=== PATIENT | female | born 1955 | race Caucasian/White ===

== ENCOUNTER 2017-02-16 11:22 | Emergency (ER) | payer OTHER | END 2017-02-16 17:18 | disposition home or self-care (01) | LOC: D.ER 11:22 | DX: S83.207A Unspecified tear of unspecified meniscus, current injury, left knee, initial encounter (principal); X58.XXXA Exposure to other specified factors, initial encounter; Y93.89 Activity, other specified; Y92.019 Unspecified place in single-family (private) house as the place of occurrence of the external cause; E10.9 Type 1 diabetes mellitus without complications; Z79.4 Long term (current) use of insulin ==

== ENCOUNTER 2017-02-20 10:25 | Day surgery (SDC) | payer OTHER ==
[~2017-02-20] VITALS: Ht 165.1 cm; Wt 95.3 kg
[~2017-02-20 10:25] MED LIST: ACETAMINOPHEN500 M1 PO; ADVIL200 MG PO; ATIVAN1 MG PO; BYSTOLIC5 MG PO; CIPRO500 MG PO; FLOMAX0.4 MG PO; GLYBURIDE5 M1 PO; LANTUS SOL100 UNIT/1 SC; VALTREX500 MG PO; ZOLOFT100 MG PO
[2017-02-20] MEDS ORDERED: CRANBERRY 400 M1 TA1 PO (11:39)
[2017-02-20] MEDS ORDERED: BAYER CHEWABLE81 MG PO (11:39)
[2017-02-20] MEDS ORDERED: OXYCONTIN10 MG PO (11:40)
[2017-02-20 11:42] VITALS: BP 119/60; Ht 165.1 cm; Wt 95.3 kg
[2017-02-20] MEDS ORDERED: PERCOCET 10/3251 TA1 PO (13:39)
== END 2017-02-20 16:00 | disposition home or self-care (01) ==
LOC: D.OPS 10:25 → D.PAN 12:15 → D.OPS 16:00
DX: S83.242A Other tear of medial meniscus, current injury, left knee, initial encounter (principal); R94.31 Abnormal electrocardiogram [ECG] [EKG]; Z01.812 Encounter for preprocedural laboratory examination; E11.9 Type 2 diabetes mellitus without complications

== ENCOUNTER → 2017-10-10 22:00 | Outpatient (CLI) | payer OTHER ==
[2017-02-20 11:42] VITALS: BMI 35.0
[~2017-10-10 22:00] MED LIST changes: +BAYER CHEWABLE81 MG PO; +CRANBERRY 400 M1 TA1 PO; +OXYCONTIN10 MG PO; +PERCOCET 10/3251 TA1 PO
== END | disposition home or self-care (01) ==
LOC: D.MAMMO 15:30
DX: Z12.31 Encounter for screening mammogram for malignant neoplasm of breast (principal)

== ENCOUNTER → 2017-11-05 12:05 | Outpatient (CLI) | payer OTHER ==
[2017-02-20 11:42] VITALS: BMI 35.0
== END | disposition home or self-care (01) ==
LOC: D.MAMMO 10:30
DX: R92.8 Other abnormal and inconclusive findings on diagnostic imaging of breast (principal)

== ENCOUNTER → 2018-06-24 13:55 | Outpatient (CLI) | payer OTHER ==
[2017-02-20 11:42] VITALS: BMI 35.0
== END | disposition home or self-care (01) ==
LOC: D.MRI 13:55
DX: S83.241A Other tear of medial meniscus, current injury, right knee, initial encounter (principal); X58.XXXA Exposure to other specified factors, initial encounter

== ENCOUNTER 2018-07-09 06:20 | Day surgery (SDC) | payer OTHER ==
[~2018-07-09] VITALS: Ht 165.1 cm; Wt 99.8 kg
[~2018-07-09 06:20] MED LIST changes: +RESTORIL15 MG; +TOZAL SOFTGEL1 EACH
[2018-07-09 07:54] VITALS: BP 118/66; Ht 165.1 cm; Wt 99.8 kg
[2018-07-09] MEDS ORDERED: HYDROCODON-ACE1 EA10 PO (11:42)
--- NOTE | 2018-07-20 09:18 | OP ---
PATIENT NAME: KASSANDRA HERNANDEZ MEDICAL RECORD: [id number] :55 LOCATION:D.OPS ADMISSION DATE: SURGEON: KYLE ALEMAN MD DATE OF OPERATION: 07/09/2018 PREOPERATIVE DIAGNOSIS: Medial meniscus tear of the right knee. POSTOPERATIVE DIAGNOSIS: Medial meniscus tear of the right knee. PROCEDURE: Arthroscopic partial medial meniscectomy of the right knee. SURGEON: Kyle Aleman MD ANESTHESIA: General. INTRAOPERATIVE COMPLICATIONS: None. 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 There was generalized grade II and III arthritis of the medial compartment; however, at no point on the medial femoral condyle did I see eburnated bone. OPERATIVE SUMMARY IN DETAIL: After obtaining the appropriate preoperative orthopedic surgery consent as well as anesthetic consultation, evaluation, and clearance, the patient was brought to the operating room and placed on the operating table in supine position. After adequate general laryngeal mask airway was administered, tourniquet was placed about the proximal aspect of the right lower extremity. Right lower extremity was then prepped and draped in routine sterile fashion. The leg was elevated and exsanguinated, tourniquet inflated to 350 mmHg. Routine inferolateral portal was established followed by superomedial portal and inferomedial portal. Diagnostic arthroscopy revealed the above findings. Attention was first turned to the medial meniscus. Combination of meniscotomes as well as a 0.035 full radius resector were utilized to debride the meniscus back to stable meniscal elements. The area of eburnated bone was noted as was the area of the medial femoral condyle. Minimal chondromalacia was seen in the trochlea. None was seen on the lateral compartment. Having completed this, the knee was insufflated with 30 cc of 0.25% Marcaine with epinephrine and 80 mg of Depo-Medrol. Arthroscopy portals were closed in routine interrupted fashion using 4-0 Prolene. Sterile dressings were applied. The patient was awakened and taken to the recovery room in stable condition. All final needle and sponge counts were correct. TRANSINT:[id number] Voice Confirmation ID: [id number] DOCUMENT ID: [id number] KYLE ALEMAN MD at 0918 CC: [id number] DICTATION DATE: 07/17/18 0934 PALLIATIVE SENIOR NP: 07/17/18 1048 [facility] 07/09/18 [place] [id number] [place] [id number]
== END 2018-07-09 13:45 | disposition home or self-care (01) ==
LOC: D.OPS 06:20 → D.PAN 08:00 → D.OPS 08:30 → D.PAN 08:30 → D.OPS 08:50
DX: S83.231A Complex tear of medial meniscus, current injury, right knee, initial encounter (principal); M94.261 Chondromalacia, right knee; M13.861 Other specified arthritis, right knee; Z01.812 Encounter for preprocedural laboratory examination

== ENCOUNTER → 2018-11-12 09:38 | Outpatient (CLI) | payer OTHER ==
[2018-08-28 12:15] VITALS: BMI 36.6
[~2018-11-12 09:38] MED LIST changes: +HYDROCODON-ACE1 EA10 PO
== END | disposition home or self-care (01) ==
LOC: D.MRI 09:38
PROVIDERS: ATTEND Orthopaedic Surgery
DX: S83.241A Other tear of medial meniscus, current injury, right knee, initial encounter (principal)

== ENCOUNTER → 2018-11-17 16:21 | Outpatient (CLI) | payer OTHER ==
[2018-08-28 12:15] VITALS: BMI 36.6
== END | disposition home or self-care (01) ==
LOC: D.LABREF 16:21
PROVIDERS: ATTEND Orthopaedic Surgery
DX: M17.11 Unilateral primary osteoarthritis, right knee (principal); Z11.8 Encounter for screening for other infectious and parasitic diseases

== ENCOUNTER 2018-11-19 15:00 | Inpatient (IN) | payer OTHER ==
[~2018-11-19] VITALS: Ht 165.1 cm; Wt 95.5 kg
[~2018-11-19 15:00] MED LIST changes: -RESTORIL15 MG; +RESTORIL15 MG PO
[2018-12-29] MEDS ORDERED: MULTI-DAY VITAM1 TAB PO (15:46)
[2018-12-29] MEDS ORDERED: estroven PO (15:47)
[2018-12-30 11:17] LABS: BASOPHILS 0.1 % (0-2); EOSINOPHILS 3.5 % (0-7); HEMATOCRIT 40.8 % (36.0-48.0); HEMOGLOBIN 13.7 g/dL (12-16); IMMATURE GRANULOCYTES 0.3 % (0-5); LYMPHOCYTES 23.6 % (15-50); MCH 27.2 pg (26.0-34.0); MCHC 33.6 g/dL (31.0-37.0); MCV 81.1 fL (80.0-100.0); MEAN PLATELET VOLUME 9.2 fL (7.4-10.4); MONOCYTES 7.6 % (2-11); NEUTROPHILS 64.9 % (40-80); PLATELET COUNT 198 10x3/uL (130-400); RBC 5.03 10x6/uL (4.00-5.40); RDW 16.3 % (11.5-14.5); WBC 7.2 10x3/uL (4.8-10.8)
[2018-12-30 11:20] LABS: ANION GAP 14.6 mmol/L (8-16); CALCIUM 8.7 mg/dL (8.5-10.1); CARBON DIOXIDE 23.6 mmol/L (21.0-32.0); POTASSIUM - SERUM 4.2 mmol/L (3.5-5.1)
[2018-12-30 11:25] LABS: INR 1.08 (0.85-1.17); PROTIME 13.5 SECONDS (11.6-15.0)
[2018-12-30 11:56] LABS: APPEARANCE SL CLDY (CLEAR); BACTERIA MANY /hpf (NONE SEEN); BILIRUBIN NEGATIVE (NEGATIVE); COLOR YELLOW (YELLOW); EPITHELIAL CELLS 0-5 /hpf (0-5); GLUCOSE 50 mg/dL (NEGATIVE); KETONE NEGATIVE (NEGATIVE); MUCUS <1+ /lpf (NONE SEEN); NITRITE POSITIVE (NEGATIVE); PROTEIN TRACE mg/dL (NEGATIVE); RED CELLS - URINE 0-5 /hpf (0-5); SPECIFIC GRAVITY 1.025 (1.005-1.020); UROBILINOGEN NORMAL (NORMAL); WHITE CELLS - URINE 25-50 /hpf (0-5)
[2019-01-04] VITALS (9 sets, daily range): BP systolic 94–136; BP diastolic 47–68; Ht 165.1 cm; Wt 95.5 kg
[2019-01-04] MEDS ORDERED: ALBUTEROL SULF8.5 GM INH (06:18)
[2019-01-04 06:39] LABS: APPEARANCE CLOUDY (CLEAR); BILIRUBIN NEGATIVE (NEGATIVE); COLOR YELLOW (YELLOW); GLUCOSE NEGATIVE (NEGATIVE); KETONE NEGATIVE (NEGATIVE); NITRITE NEGATIVE (NEGATIVE); PROTEIN NEGATIVE (NEGATIVE); UROBILINOGEN NORMAL (NORMAL)
[2019-01-04 06:40] LABS: BACTERIA FEW /hpf (NONE SEEN); EPITHELIAL CELLS 0-5 /hpf (0-5); WHITE CELLS - URINE 0-5 /hpf (0-5)
[2019-01-04 06:41] LABS: CALCIUM OXALATE CRYSTALS RARE /hpf (NONE SEEN); MUCUS <1+ /lpf (NONE SEEN); TALC POWDER CRYSTALS OCC /hpf (NONE SEEN); URIC ACID CRYSTALS 0-5 /hpf (NONE SEEN)
--- NOTE | 2019-01-04 08:11 | NUR ---
PLASMA BLADE SET TO 6/8 AND BOVIE PAD RIGHT FLANK LOT [id number] DATE 06/17/20 PREPT FROM TOURNIQUT TO TOES CIRCUMFERENTIALEY
--- NOTE | 2019-01-04 09:32 | NUR ---
LMA REMOVED. MASK IN PLACE. PT AWAKE BUT DROWSY. APPLIED ICE PACK TO R.KNEE. PT DENIES ANY CURRENT PAIN. WILL CTM.
--- NOTE | 2019-01-04 10:52 | NUR ---
PATIENT RECIEVED FROM RECOVERY ROOM FOLLOWING RIGHT TOTAL KNEE REPLACEMENT. DRESSING TO RIGHT KNEE SECURED WITH JOSEFINA AND IS DRY AND INTACT. PATIENT REPORTS SOME PAIN TO POSTERIER KNEE, NORCO GIVEN FOR PAIN. PERIPHERAL PULSES INTACT. RESPITATONS NON-LABORED BUT SHALLOW WITH PAIENT PLACED ON 4L NC POST ANESTHESIA. PATIENT EDUCATED ON COUGH AND DEEP BREATHING EXERCISES WITH IS PROVIDED. V/S STABLE. CL IN REACH
--- NOTE | 2019-01-04 12:21 | OP ---
PATIENT NAME: KASSANDRA HERNANDEZ MEDICAL RECORD: [id number] :55 LOCATION:D.MS [id number] ADMISSION DATE:01/04/19 SURGEON: KYLE ALEMAN MD DATE OF OPERATION: 01/04/2019 PREOPERATIVE DIAGNOSIS: Degenerative arthritis, right knee. POSTOPERATIVE DIAGNOSIS: Degenerative arthritis, right knee. PROCEDURE: Right total knee arthroplasty. SURGEON: Kyle Aleman MD AUTOMOBILE ENGINE ASSEMBLER: 1. Thanh Barrera. 2. Kevin. INTRAOPERATIVE COMPLICATIONS: None. SUMMARY OF PATHOLOGIC FINDINGS: The patient was found to have severe degenerative arthritis of the medial compartment [id number] arthritis seen with kissing lesion in the medial tibial plateau. IMPLANTS USED: A cemented Triathlon total knee arthroplasty, size 4 distal femur, 4 tibial baseplate, 9 polyethylene insert, 31 mm patella. OPERATIVE SUMMARY IN DETAIL: After obtaining the appropriate preoperative orthopedic surgery consents as well as anesthetic consultation, evaluation and clearance, the patient was brought to the operating room and placed on the operating table in supine position. After adequate general laryngeal mask airway was administered, tourniquet was placed about the proximal aspect of the right lower extremity. Right lower extremity was prepped and draped in routine sterile fashion. At this point, the appropriate timeout was taken with the appropriate patient indicators, allergies, as well as medications. This was agreed upon by all in the operative suite. The leg was then elevated and exsanguinated, tourniquet was inflated to 350 mmHg. Routine midline incision was taken down for a paramedian arthrotomy. Patella was everted, distal femur exposed. Soft tissue excision was done in the usual fashion. An intramedullary guide hole was created intramedullary guided distal femoral cut. Complete exposure of the proximal tibia was then followed by further soft tissue removal and the intramedullary guided cut was created here likewise. Appropriate measurements were taken. Distal chamfer cuts were made. Trial components corresponding to the finals were put into place. Final distal femoral and proximal tibial preparation were then followed by cutting of the arthritic surface of the patella for a size 31 x 9 symmetric onlay patella. Trials were removed. The knee was then irrigated for removal of all debris. Bone ends were completely dried. Components were cemented into place. All excess cement was removed. After the cement had been removed and allowed to harden, the knee was taken through range of motion and found to be stable in all planes with good patellar tracking. At this point, Dalton Barrera and Kevin both closed the paramedian arthrotomy. Prior to paramedian arthrotomy closure, the knee was filled with a gram of vancomycin, a gram of tobramycin. Paramedian arthrotomy was closed with #2 Ethibond followed by #1 Vicryl, 2-0 Vicryl, subcuticular zip tie was then placed. Sterile dressings were applied. Tourniquet was deflated. The patient was awakened and taken to recovery room in stable condition. All OPERATIVE REPORT [id number] KASSANDRA HERNANDEZ final needle and sponge counts were correct. TRANSINT:[id number] Voice Confirmation ID: [id number] DOCUMENT ID: [id number] LOVE GUERRA, KYLE BRUNER at 1221 CC: [id number] DICTATION DATE: 01/04/19914 SUPERVISOR LEAF SPRING FABRICATION: 01/04/19 0931 ADM IN [facility] [address] [place] [address]
--- NOTE | 2019-01-04 19:40 | NUR ---
LYING IN BED. CPM IN USE. ALERT AND ORIENTED X4. RATES PAIN 1 IN RT KNEE. DRSG NOTED TO RT KNEE WITH JOSEFINA WRAP. NO EDEMA NOTED. NAVI HOSE ON AND SCD IN USE TO LLE. 1/2 NS @ 100 ML/HR INFUSING IN LT FOREARM WITHOUT DIFF. MADISON ALARM ON. AT BEDSIDED. SR ELEVATED X2. CL IN REACH.
--- NOTE | 2019-01-04 21:50 | NUR ---
MEDICATED WITH NORCO FOR C/O PAIN IN RT KNEE. CL IN REACH.
[2019-01-05] VITALS: BP 104/44
--- NOTE | 2019-01-05 02:49 | NUR ---
MEDICATED WITH TORADOL FOR C/O PAIN IN RT KNEE. CL IN REACH.
[2019-01-05 04:00] VITALS: BP 111/61
[2019-01-05 06:49] LABS: HEMATOCRIT 32.2 % (36.0-48.0); HEMOGLOBIN 10.6 g/dL (12-16); MCHC 32.9 g/dL (31.0-37.0); MCV 81.9 fL (80.0-100.0); MEAN PLATELET VOLUME 9.2 fL (7.4-10.4); RBC 3.93 10x6/uL (4.00-5.40); RDW 16.6 % (11.5-14.5)
[2019-01-05 07:55] LABS: CALC OSMOLALITY 278 mosm/kg (275-300); CALCIUM 7.9 mg/dL (8.5-10.1); CARBON DIOXIDE 21.9 mmol/L (21.0-32.0); CHLORIDE - SERUM 107 mmol/L (98-107); CREATININE - SERUM 0.8 mg/dL (0.6-1.3); POTASSIUM - SERUM 4.4 mmol/L (3.5-5.1); SODIUM 139 mmol/L (136-145); UREA NITROGEN 11 mg/dL (7-18); eGFR NON AFRICAN AMERICAN 77 mL/min (90-120)
[2019-01-05 07:58] LABS: GLUCOSE 134 mg/dL (74-106)
[2019-01-05 08:24] VITALS: BP 107/49
--- NOTE | 2019-01-05 10:51 | NUR ---
PT ALERT X 4. BREATH SOUNDS CLEAR BILAT. IV TO LEFT FOREARM, PATENT, DRESSING CDI. PT REPORTING PAIN OF 7/10, SENIOR PRINCIPAL SOFTWARE ENGINEER INITIATED, WILL MONITOR. DRESSING TO RIGHT LEG CDI. NAVI HOSE TO LEFT LEG. PT UP TO CHAIR. BED LOW, CALL LIGHT IN REACH. NO OTHER NEEDS AT THIS TIME.
[2019-01-05 11:54] VITALS: BP 99/65
[2019-01-05 15:45] VITALS: BP 125/62
--- NOTE | 2019-01-05 19:15 | NUR ---
LYING IN BED. DROWSY. FALLING ASLEEP DURING CONVERSATION. AT BEDSIDE. INSTRUCTED PT TO ONLY USE EARTH BORING MACHINE OPERATOR NEEDED. RATES PAIN 6 IN RT KNEE. CPM IN USE. MEDICATED WITH ZOFRAN FOR C/O NAUSEA. SCD AND NAVI TO LLE. 1/2 NS @ 30 ML/HR INFUSING IN LT FOREARM WITHOUT DIFF WITH DILAUDID EARTH BORING MACHINE OPERATOR. ABD DISTENDED AND FIRM. BS HYPOACTIVE. AMB WITH WALKER WITH ASSIST. ENCOURAGED TO USE I.S, COUGH AND DEEP BREATHE. SR ELEVATED X2. CL IN REACH.
--- NOTE | 2019-01-05 19:30 | NUR ---
RT IN ROOM TO CHECK SAO2 AND NOTIFIED STAFF SAO2 OF 66%. PT PLACED ON O2 @ 3L/NC AT THIS TIME. ENCOURAGED TO USE I.S. AND COUGH AND DEEP BREATHE. PT VERBALIZED UNDERSTANDING OF THIS. INSTRUCTED TO USE FRUIT GRADER OPERATOR ONLY IF IN PAIN. AT BEDSIDE. SAO2 UP TO 92%.
[2019-01-05 20:00] VITALS: BP 136/65
--- NOTE | 2019-01-05 20:10 | NUR ---
NOTIFIED DR LONGORIA SHOE POLISHER FOR ELEVATED TEMP. NEW ORDER NOTED FOR TYLENOL AND TO USE I.S INSTRUCTED.
--- NOTE | 2019-01-05 22:00 | NUR ---
MEDICATED WITH TORADOL FOR C/O RT KNEE PAIN. STATES SHE ISNT USING ART THERAPY SPECIALIST MUCH. HELD RESTORIL DUE TO DROWSINESS. CL IN REACH.
[2019-01-06] VITALS: BP 107/40
--- NOTE | 2019-01-06 02:16 | NUR ---
LYING AWAKE IN BED. NO DISTRESS. ALERT. TALKATIVE WITH STAFF. CL IN REACH.
--- NOTE | 2019-01-06 02:58 | NUR ---
ASSISTED UP TO BR TO VOID. AMB WITH WALKER. DOING WELL. NO DISTRESS. CL IN REACH.
[2019-01-06 04:00] VITALS: BP 113/60
[2019-01-06 05:09] LABS: HEMATOCRIT 31.6 % (36.0-48.0); HEMOGLOBIN 10.3 g/dL (12-16); MCH 26.8 pg (26.0-34.0); MCHC 32.6 g/dL (31.0-37.0); MCV 82.3 fL (80.0-100.0); MEAN PLATELET VOLUME 9.4 fL (7.4-10.4); RBC 3.84 10x6/uL (4.00-5.40); RDW 16.9 % (11.5-14.5); WBC 8.4 10x3/uL (4.8-10.8)
[2019-01-06 09:20] VITALS: BP 100/69
[2019-01-06 12:24] VITALS: BP 96/47
[2019-01-06 14:08] LABS: APPEARANCE HAZY (CLEAR); BACTERIA MODERATE /hpf (NONE SEEN); BILIRUBIN NEGATIVE (NEGATIVE); COLOR YELLOW (YELLOW); EPITHELIAL CELLS 0-5 /hpf (0-5); GLUCOSE 50 mg/dL (NEGATIVE); KETONE SMALL mg/dL (NEGATIVE); MUCUS <1+ /lpf (NONE SEEN); NITRITE NEGATIVE (NEGATIVE); PROTEIN NEGATIVE (NEGATIVE); SPECIFIC GRAVITY 1.015 (1.005-1.020); UROBILINOGEN NORMAL (NORMAL); WHITE CELLS - URINE 0-5 /hpf (0-5)
[2019-01-06 14:09] LABS: GRANULAR CAST OCC /lpf (NONE SEEN); HYALINE CAST RARE /lpf (NONE SEEN)
[2019-01-06 18:46] VITALS: BP 99/69
--- NOTE | 2019-01-06 20:55 | NUR ---
LYING IN BED. ALERT AND ORIENTED X4. RESP EVEN AND NONLABORE. ENCOURAGED USE OF I.S. STATES SHE HAS BEEN USING IT. O2 OFF. PLACED ON O2 @ 3L/NC. SAO2 DROPS WHEN OFF. BANKING SPECIALIST DILAUDID IN USE. 1/2 NS @ 30 ML/HR INFUSING IN LT FOREARM. SCD TO LLE. REFUSES TO WEAR NAVI BECAUSE IT HURTS. DSRG NOTED TO RT KNEE. AMB WITH WALKER. C/O PAIN IN RT KNEE. MEDICATED WITH PERCOCET ORDERED. AT BEDSIDE. SR ELEVATED X2. CL IN REACH.
[2019-01-06 22:19] VITALS: BP 133/53
[2019-01-07 02:02] VITALS: BP 109/57
--- NOTE | 2019-01-07 03:00 | NUR ---
HAS RESTED WELL TONIGHT. NO DISTRESS. CL IN REACH.
[2019-01-07 05:04] VITALS: BP 112/76
--- NOTE | 2019-01-07 07:45 | NUR ---
ALERT AND ORIENTED. LUNGS CLEAR BILATERALLY IN ALL LIU. HEART SOUNDS S1 AND S2 HEARD IN ALL LIU. BOWEL SOUNDS ACTIVE X 4. JOSEFINA WRAP TO RIGHT KNEE. ON CPM. SKIN OTHERWISE INTACT WITHOUT REDNESS. IV TO LFA PATENT WITHOUT REDNESS. DENIES PAIN. DENIES NEEDS. BED LOW. CALL CODY AND PERSONAL ITEMS IN REACH. WILL CONTINUE TO MONITOR.
[2019-01-07 09:03] LABS: HEMATOCRIT 29.4 % (36.0-48.0); HEMOGLOBIN 9.6 g/dL (12-16); MCH 26.6 pg (26.0-34.0); MCHC 32.7 g/dL (31.0-37.0); MCV 81.4 fL (80.0-100.0); MEAN PLATELET VOLUME 8.9 fL (7.4-10.4); RBC 3.61 10x6/uL (4.00-5.40); RDW 16.3 % (11.5-14.5); WBC 7.7 10x3/uL (4.8-10.8)
[2019-01-07 09:37] VITALS: BP 98/50
--- NOTE | 2019-01-07 10:41 | NUR ---
EDUCATION PROVIDED ON NEED FOR URINE CULTURE. VERBALIZED UNDERSTANDING. HAT IN TOILET.
--- NOTE | 2019-01-07 11:16 | NUR ---
ASSITED PATIENT FROM CHAIR BACK TO BED WITHOUT DIFFICULTY. 1 PERSON STANDBY.
--- NOTE | 2019-01-07 13:03 | NUR ---
PATIENT SLEEPING. WILL CONTINUE TO MONITOR.
[2019-01-07 13:07] VITALS: BP 108/59
--- NOTE | 2019-01-07 14:47 | MORECARE ---
CASE MANAGEMENT DISCHARGE SUMMARY PATIENT: KASSANDRA HERNANDEZ UNIT: [id number] ADM DATE: 01/04/19 AGE: 63 : 55 SEX: F ROOM/BED: D.2208 AUTHOR: KAVEH HART PHYSICIAN: REFERRING PHYSICIAN: KYLE ALEMAN MD DATE OF SERVICE: 01/07/19 Discharge Plan Patient Name: KASSANDRA HERNANDEZ [facility] [facility] 1955 Planned Disposition: Home or Self Care Anticipated Discharge Date: Discharge Date: Expected LOS: Initial Reviewer: [email or web address] Initial Review Date: 01/04/2019 Generated: 01/07/19 3:47 pm DCPIA - Discharge Planning Initial Assessment Updated by [email or web address]: Jocelin Naik on 01/07/19 2:45 pm * Is the patient Alert and Oriented? Yes * How many steps to enter\exit or inside your home? * PCP JJ * [facility] [address] * Preadmission Environment Home with Family * ADLs Independent * Equipment Walker * Other Equipment CPM * List name and contact numbers for known caregivers / representatives who currently or will assist patient after discharge: CHUNG HERNANDEZ [phone] * Verbal permission to speak to the caregivers and representatives has been obtained from the patient. N/A * Community resources currently utilized None * Additional services required to return to the preadmission environment? Yes * Can the patient safely return to the preadmission environment? Yes * Has this patient been hospitalized within the prior 30 days at any hospital? No Patient Name: KASSANDRA HERNANDEZ Page [phone] at 1447 All edits/amendments must be made on the electronic document DICTATION DATE: 01/07/19 1446 FRONT DESK HOST: JHONY 01/07/19 1446 RPT#: [id number] DC DATE: STATUS: ADM IN [facility] [address] [place] [address] END OF REPORT
--- NOTE | 2019-01-07 14:54 | MORECARE ---
CASE MANAGEMENT DISCHARGE SUMMARY PATIENT: KASSANDRA HERNANDEZ UNIT: [id number] ADM DATE: 01/04/19 AGE: 63 : 55 SEX: F ROOM/BED: D.220 AUTHOR: HAILEY,DOC PHYSICIAN: REFERRING PHYSICIAN: KYLE ALEMAN MD DATE OF SERVICE: 01/07/19 Discharge Plan Patient Name: KASSANDRA HERNANDEZ Facility: [facility]:[place] : 1955 Planned Disposition: Home or Self Care Anticipated Discharge Date: Discharge Date: Expected LOS: Initial Reviewer: [email or web address] Initial Review Date: 01/04/2019 Generated: 01/07/19 3:54 pm Comments DCP- Discharge Planning Updated by [email or web address]: Jocelin Naik on 01/07/19 1:[address] Patient Name: KASSANDRA HERNANDEZ Admission Status: Elective Accout number: [id number] Admission Date: 01-04-2019 : 1955 Admission Diagnosis: Attending: KYLE ALEMAN Current LOS: 3 Anticipated DC Date: Planned Disposition: Home or Self Care Primary Insurance: TRICAREER Discharge Planning Comments: CM met with patient to complete initial dc planning assessment. CM educated patient on the CM role and verbal consent given by patient to complete assessment. Patient lives at home with her where she is independent with her care. At discharge patient plans to return home and feels this is a safe discharge. CM discussed availability of home health, rehab services, and medical equipment. She has a walker and CPM at home that was set up by dr aleman's office. She would like to do OP PT at [facility] PT, I spoke with Jena and her appointment is made for 01/11/19 @ 4:00 pm. I faxed order to them and a copy will be given to patient with her DC papers. Patient denied known discharge needs at this time. CM will continue to follow and will assist as needed with dc plans/needs. Senior Analyst Developer: Jocelin Naik DCPIA - Discharge Planning Initial Assessment Updated by [email or web address]: Jocelin Naik on 01/07/19 2:45 pm * Is the patient Alert and Oriented? Yes * How many steps to enter\exit or inside your home? * PCP JJ * Pharm[facility] [address] * Preadmission Environment Home with Family * ADLs Independent * Equipment Walker * Other Equipment CPM * List name and contact numbers for known caregivers / representatives who currently or will assist patient after discharge: CHUNG HERNANDEZ [phone] * Verbal permission to speak to the caregivers and representatives has been obtained from the patient. N/A * Community resources currently utilized None * Additional services required to return to the preadmission environment? Yes * Can the patient safely return to the preadmission environment? Yes * Has this patient been hospitalized within the prior 30 days at any hospital? No Last DP export: 01/07/19 1:47 pm Patient Name: KASSANDRA HERNANDEZ Page [phone] at 1454 All edits/amendments must be made on the electronic document DICTATION DATE: 01/07/191452 RESPIRATORY CARE ASSISTANT: JHONY 01/07/191452 RPT#: [id number] DC DATE: STATUS: ADM IN [facility] [address] [place] [address] END OF REPORT
--- NOTE | 2019-01-07 15:57 | NUR ---
RESTING IN BED. DENIES PAIN. DENIES NEEDS. WILL CONTINUE TO MONITOR.
[2019-01-07 18:14] VITALS: BP 113/62
--- NOTE | 2019-01-07 18:25 | NUR ---
RESTING IN BED. DENIES PAIN. DENIES NEEDS. BED LOW. CALL CODY AND PERSONAL ITEMS IN REACH. WILL CONTINUE TO MONITOR.
--- NOTE | 2019-01-07 19:30 | NUR ---
A&O X 4. DRESSING TO RIGHT KNEE C/D/I. CPM IN USE. REPORTS MILD PAIN, REQUESTS PAIN PILL. INFORMED PT THAT PO PAIN MEDS CANNOT BE GIVEN WHILE METER SETTER IN USE. PT VERBALIZED UNDERSTANDING. DENIES CURRENT NEEDS. WILL CONTINUE TO MONITOR.
[2019-01-07 20:43] VITALS: BP 117/48
[2019-01-08 00:55] VITALS: BP 126/62
--- NOTE | 2019-01-08 04:37 | NUR ---
I have reviewed this patient and I concur with the Shift Assessment completed by the Licensed Practical Nurse today this shift.
--- NOTE | 2019-01-08 04:39 | NUR ---
I have reviewed this patient and I concur with the Shift Assessment completed by the Licensed Practical Nurse today this shift.
[2019-01-08 05:42] VITALS: BP 110/49
--- NOTE | 2019-01-08 07:52 | NUR ---
ALERT AND ORIENTED. LUNGS CLEAR BILATERALLY IN ALL LIU. HEART SOUNDS S1 AND S2 HEARD IN ALL LIU. BOWEL SOUNDS ACTIVE X 4. SKIN INTACT WITHOUT REDNESS. JOSEFINA WRAP TO RIGHT KNEE. IV TO LFA PATENT WITHOUT REDNESS. AT BEDSIDE. BED LOW. FALL PRECAUTIONS IN PLACE. CALL CODY AND PERSONAL ITEMS IN REACH. WILL CONTINUE TO MONITOR.
[2019-01-08 08:28] VITALS: BP 122/66
[2019-01-08] MEDS ORDERED: Nystatin Oral Susp [ PO (08:50)
[2019-01-08] MEDS ORDERED: ELIQUIS2.5 MG PO (08:50)
[2019-01-08] MEDS ORDERED: PERCOCET 10-321 EAC1 PO (08:50)
[2019-01-08] MEDS ORDERED: SULFAMETHOXAZOL1 TA2 PO (08:51)
--- NOTE | 2019-01-08 09:52 | MORECARE ---
CASE MANAGEMENT DISCHARGE SUMMARY PATIENT: KASSANDRA HERNANDEZ UNIT: [id number] ADM DATE: 01/04/19 AGE: 63 : 55 SEX: F ROOM/BED: D.2208 AUTHOR: HAILEY,DOC PHYSICIAN: REFERRING PHYSICIAN: KYLE ALEMAN MD DATE OF SERVICE: 01/08/19 Discharge Plan Patient Name: KASSANDRA HERNANDEZ Facility: [facility]:[place] : 1955 Planned Disposition: Home or Self Care Anticipated Discharge Date: Discharge Date: Expected LOS: Initial Reviewer: [email or web address] Initial Review Date: 01/04/2019 Generated: 01/08/19 10:52 am Comments DCP- Discharge Planning Updated by [email or web address]: Jocelin Naik on 01/08/19 8:[address] Patient Name: KASSANDRA HERNANDEZ Encounter No: [id number] : 1955 Primary Insurance: TRICAREER Anticipated DC Date: Planned Disposition: Home or Self Care External Planned Provider: : DCP follow-up note: Patient and family in agreement with discharge plan. No changes to plan. Case management will follow and assist as needed. Jocelin Naik DCP- Discharge Planning Updated by [email or web address]: Jocelin Naik on 01/07/19 1:[address] Patient Name: KASSANDRA HERNANDEZ Admission Status: Elective Accout number: [id number] Admission Date: 01-04-2019 : 1955 Admission Diagnosis: Attending: KYLE ALEMAN Current LOS: 3 Anticipated DC Date: Planned Disposition: Home or Self Care Primary Insurance: TRICAREER Discharge Planning Comments: CM met with patient to complete initial dc planning assessment. CM educated patient on the CM role and verbal consent given by patient to complete assessment. Patient lives at home with her where she is independent with her care. At discharge patient plans to return home and feels this is a safe discharge. CM discussed availability of home health, rehab services, and medical equipment. She has a walker and CPM at home that was set up by dr aleman's office. She would like to do OP PT at [facility] PT, I spoke with Jena and her appointment is made for 01/11/19 @ 4:00 pm. I faxed order to them and a copy will be given to patient with her DC papers. Patient denied known discharge needs at this time. CM will continue to follow and will assist as needed with dc plans/needs. Case Resource Manager: Jocelin Naik DCPIA - Discharge Planning Initial Assessment Updated by [email or web address]: Jocelin Naik on 01/07/19 2:45 pm * Is the patient Alert and Oriented? Yes * How many steps to enter\exit or inside your home? * PCP JJ * Pharm[facility] [address] * Preadmission Environment Home with Family * ADLs Independent * Equipment Walker * Other Equipment CPM * List name and contact numbers for known caregivers / representatives who currently or will assist patient after discharge: CHUNG HERNANDEZ [phone] * Verbal permission to speak to the caregivers and representatives has been obtained from the patient. N/A * Community resources currently utilized None * Additional services required to return to the preadmission environment? Yes * Can the patient safely return to the preadmission environment? Yes * Has this patient been hospitalized within the prior 30 days at any hospital? No Last DP export: 01/07/19 1:54 pm Patient Name: KASSANDRA HERNANDEZ Page [phone] at 0952 All edits/amendments must be made on the electronic document DICTATION DATE: 01/08/19950 DEFLECTOR OPERATOR: JHONY 01/08/19950 RPT#: [id number] DC DATE: STATUS: ADM IN [facility] [address] [place] [address] END OF REPORT
--- NOTE | 2019-01-08 10:10 | NUR ---
DISCHARGE EDUCATION PROVIDED BOTH WRITTEN AND VERBAL. PATIENT AND AT VERBALIZED UNDERSTANDING. DENIES FURTHER QUESTIONS. IV REMOVED FROM LFA WITH TIP INTACT. DRSG CHANGED TO RIGHT KNEE. NO SIGNS SYMPTOMS INFECTION NOTED. NEW DRSG AND JOSEFINA WRAP PROVIDED. EDUCATION PROVIDED TO CHANGE DRSG IN 7 DAYS. VERBALIZED UNDERSTANDING. PATIENT DISCHARGED HOME WITH WITH ALL BELONGINGS.
--- NOTE | 2019-01-11 14:13 | MORECARE ---
CASE MANAGEMENT DISCHARGE SUMMARY PATIENT: KASSANDRA HERNANDEZ UNIT: [id number] ADM DATE: 01/04/19 AGE: 63 : 55 SEX: F ROOM/BED: D.2202 AUTHOR: HAILEY,DOC PHYSICIAN: REFERRING PHYSICIAN: KYLE ALEMAN MD DATE OF SERVICE: 01/11/19 Discharge Plan Patient Name: KASSANDRA HERNANDEZ Facility[facility]:[place] : 1955 Planned Disposition: Home or Self Care Anticipated Discharge Date: Discharge Date: 01/08/2019 Expected LOS: Initial Reviewer: [email or web address] Initial Review Date: 01/04/2019 Generated: 01/11/19 3:12 pm Comments DCP- Discharge Planning Updated by [email or web address]: Jocelin Naik on 01/08/19 8:[address] Patient Name: KASSANDRA HERNANDEZ Encounter No: [id number] : 1955 Primary Insurance: TRICAREER Anticipated DC Date: Planned Disposition: Home or Self Care External Planned Provider: : DCP follow-up note: Patient and family in agreement with discharge plan. No changes to plan. Case management will follow and assist as needed. Jocelin Naik DCP- Discharge Planning Updated by [email or web address]: Jocelin Naik on 01/07/19 1:[address] Patient Name: KASSANDRA HERNANDEZ Admission Status: Elective Accout number: [id number] Admission Date: 01-04-2019 : 1955 Admission Diagnosis: Attending: KYLE ALEMAN Current LOS: 3 Anticipated DC Date: Planned Disposition: Home or Self Care Primary Insurance: TRICAREER Discharge Planning Comments: CM met with patient to complete initial dc planning assessment. CM educated patient on the CM role and verbal consent given by patient to complete assessment. Patient lives at home with her where she is independent with her care. At discharge patient plans to return home and feels this is a safe discharge. CM discussed availability of home health, rehab services, and medical equipment. She has a walker and CPM at home that was set up by dr aleman's office. She would like to do OP PT at [facility] PT, I spoke with Jena and her appointment is made for 01/11/19 @ 4:00 pm. I faxed order to them and a copy will be given to patient with her DC papers. Patient denied known discharge needs at this time. CM will continue to follow and will assist as needed with dc plans/needs. Inventory Clerk: Jocelin Naik DCPIA - Discharge Planning Initial Assessment Updated by [email or web address]: Jocelin Naik on 01/07/19 2:45 pm * Is the patient Alert and Oriented? Yes * How many steps to enter\exit or inside your home? * PCP JJ * Pharm[facility] [address] * Preadmission Environment Home with Family * ADLs Independent * Equipment Walker * Other Equipment CPM * List name and contact numbers for known caregivers / representatives who currently or will assist patient after discharge: CHUNG HERNANDEZ [phone] * Verbal permission to speak to the caregivers and representatives has been obtained from the patient. N/A * Community resources currently utilized None * Additional services required to return to the preadmission environment? Yes * Can the patient safely return to the preadmission environment? Yes * Has this patient been hospitalized within the prior 30 days at any hospital? No Last DP export: 01/08/19 8:52 am Patient Name: KASSANDRA HERNANDEZ Page [phone] at 1413 All edits/amendments must be made on the electronic document DICTATION DATE: 01/11/191411 PSYCHIATRY PHYSICIAN: JHONY 01/11/191411 RPT#: [id number] DC DATE:01/08/19 STATUS: DIS IN [facility] [address] [place] [address] END OF REPORT
== END 2019-01-08 10:34 | disposition home or self-care (01) | DRG 470 ==
LOC: D.SDCHOLD 01-04 05:58 → D.MS 01-04 05:58 → D.SDCHOLD 01-04 07:30 → D.MS 01-04 09:33 → D.SDCHOLD 01-04 10:00 → D.MS 01-08 10:34
PROVIDERS: ADMIT Orthopaedic Surgery; ATTEND Orthopaedic Surgery
PROC: 0SRC0J9 Replacement of Right Knee Joint with Synthetic Substitute, Cemented, Open Approach (ICD-10-PCS; principal; 2019-01-04 07:30)
DX: M17.11 Unilateral primary osteoarthritis, right knee (principal); E11.9 Type 2 diabetes mellitus without complications